=== PATIENT | male | born 1980 | race Caucasian/White ===

== ENCOUNTER 2019-01-22 20:26 | Inpatient (IN) | payer MEDICAID ==
[2019-01-22] VITALS (7 sets, daily range): BP systolic 138–175; BP diastolic 92–119
[~2019-01-22] VITALS: Ht 180.3 cm; Wt 77.1 kg
--- NOTE | ~2019-01-22 | HP ---
PATIENT: GIORGIO SHELBY III MEDICAL RECORD: [id number] ACCOUNT: [id number] LOCATION:[facility] D.[id number] : 80 ADMISSION DATE: 01/22/19 PCP: No PCP HISTORY AND PHYSICAL EXAMINATION HISTORY OF PRESENT ILLNESS: A 38-year-old white male was brought in by ambulance after the patient had a syncopal episode that occurred. The patient is a med-on-call patient. Evidently, the patient was in his usual state of health. He had had an episode of public intoxication. Ambulance was called due to patient falling and sustaining a right facial trauma. The patient became combative en route, did have aspiration that was witnessed by the EMS, and the patient had respiratory distress. He required emergent intubation to protect his airway and initially had been coherent. The patient received 10 of Versed by EMS en route. Presently, the patient is in appropriate C-collar. Laceration is noted to the right face with trauma present there as well. He is intubated. He does smell of alcohol, but otherwise is stabilized appropriately. I was unable to obtain medical history due to being a med-on-call and no other historical information obtained as well as being intubated at the present time. OBJECTIVE: VITAL SIGNS: As per ER course. HEENT: The patient does have evidence of recent trauma to the right forehead and eye. Intubation is present. NECK: Stabilized with cervical collar. LUNGS: Coarse breath sounds heard in bilateral upper lung rosas. HEART: Regular rate and rhythm with mild tachycardia. ABDOMEN: Soft and nontender. Positive bowel sounds. No hepatosplenomegaly or masses. EXTREMITIES: Multiple tattoos are present. No edema is present. He does have good pulses in all 4 extremities. The patient had CT of head, face, and C-spine. He was stabilized. The patient was started on vancomycin and Zosyn. Ventilator management to be obtained with Dr. Monge, who is the field research assistant on-call. PLAN: The patient will be transferred to the ICU. Banana bag to be initialized. DT precautions to be utilized and check laboratory appropriately. TRANSINT:[id number] Voice Confirmation ID: [id number] DOCUMENT ID: [id number] BRIONNA BECKETT MD CC: [id number] DICTATION DATE: 01/23/19 141 FLOATER OPERATOR: 01/23/191757 ADM IN [facility] [address] [facility] [place] [address]
--- NOTE | ~2019-01-22 | CN ---
PATIENT NAME:GIORGIO SHELBY III MEDICAL RECORD: [id number] : 80 LOCATION:[id number] ADMIT DATE: 01/22/19 ACCOUNT: [id number] CONSULTING PHYSICIAN: DIONNA ALEJANDRO MD REFERRING PHYSICIAN: BRIONNA TORRES MD DATE OF CONSULTATION: 01/23/2019 CONSULT REQUESTING PHYSICIAN: Dr. Torres REASON FOR CONSULTATION: Vent management, alcohol intoxication. HISTORY OF PRESENT ILLNESS: Mr. Shelby is a 38-year-old gentleman who was brought in by the ambulance to the ER. On the way from home, the patient was intoxicated and he was very agitated and restless. The patient was also having a fall and got right-sided facial injury. The patient was electively intubated to protect his airway. REVIEW OF SYSTEMS: The detail is not obtainable. PAST MEDICAL HISTORY: Alcoholism. The other details are not obtainable. PERSONAL AND SOCIAL HISTORY: The patient is drinking on a regular basis. FAMILY HISTORY: Nonobtainable. ALLERGIES: No known drug allergy. MEDICATIONS: PowerPlan is reviewed. PHYSICAL EXAMINATION: GENERAL: Now, the patient is orally intubated. The patient is very agitated. He has a right facial injury. VITAL SIGNS: The blood pressure is 150/96, pulse is 116, respirations 20, temperature 98.4, SpO2 is 97% on assist control mechanical ventilation, tidal volume of 550, FiO2 of 30%, PEEP of 5. HEENT: Conjunctivae are pink. Sclerae nonicteric. NECK: Supple. No JVD. The patient is in the cervical collar. CHEST: The chest excursion is equal on both sides. There are bibasilar crackles. No wheezing. HEART: Rhythm regular, normal sound, no murmur. ABDOMEN: Soft, bowel sounds present. No hepatosplenomegaly. RECTAL: Deferred. EXTREMITIES: No cyanosis, no clubbing, no pedal edema. CENTRAL NERVOUS SYSTEM: The patient is moving all 4 extremities. He is sedated and agitated. LABORATORY DATA: CBC: The WBC is 13.9, hemoglobin 15.1, hematocrit 43.6, and platelet count 308. Chemistry: Sodium 143, potassium 3.9, BUN is 7, creatinine 0.8. The proBNP is 16. Liver enzymes within normal range. CONSULT REPORT [id number] GIORGIO SHELBY III The alcohol level is 362. The urine positive for benzodiazepines. ABG: The pH is 7.34, pCO2 was 47.6, the pO2 was 499. This was done on 100% oxygen on assist control mechanical ventilation. CHEST RADIOGRAPH: There are increased interstitial markings. The ET tube is in good position. IMPRESSION: 1. Acute hypoxic respiratory failure. 2. Acute mental status changes. 3. Aspiration pneumonia. 4. Alcohol intoxication. 5. Leukocytosis. 6. Facial injuries, status post fall. RECOMMENDATIONS: 1. Continue mechanical ventilation, adjust the setting, change the assist control to SIMV. We will try to wean in a.m. when the patient is more awake and alert. 2. Continue the present empiric antibiotics for aspiration pneumonia. 3. Check sputum for culture and sensitivity. 4. DVT and GI bleed prophylaxis. 5. Follow up labs and chest radiograph. Discussed with RN and RT. The critical care time is 45 minutes. TRANSINT:[id number] Voice Confirmation ID: [id number] DOCUMENT ID: [id number] DIONNA ALEJANDRO MD CC: [id number] DICTATION DATE: 01/23/19 1346 LEAD AUDITOR: 01/23/19 2332 ADM IN [facility] [address] [place] [address]
[2019-01-22 21:07] LABS: BASOPHILS 0.4 % (0-2); EOSINOPHILS 1.2 % (0-7); HEMATOCRIT 42.6 % (42.0-54.0); HEMOGLOBIN 14.7 g/dL (13.5-17.5); IMMATURE GRANULOCYTES 0.9 % (0-5); LYMPHOCYTES 25.1 % (15-50); MCH 31.9 pg (26.0-34.0); MCHC 34.5 g/dL (31.0-37.0); MCV 92.4 fL (80.0-100.0); MONOCYTES 7.5 % (2-11); NEUTROPHILS 64.9 % (40-80); PLATELET COUNT 303 10x3/uL (130-400); RBC 4.61 10x6/uL (4.20-6.10); RDW 13.7 % (11.5-14.5); WBC 12.9 10x3/uL (4.8-10.8)
[2019-01-22 21:10] LABS: APPEARANCE CLEAR (CLEAR); BILIRUBIN NEGATIVE (NEGATIVE); COLOR YELLOW (YELLOW); GLUCOSE NEGATIVE (NEGATIVE); KETONE NEGATIVE (NEGATIVE); NITRITE NEGATIVE (NEGATIVE); PROTEIN NEGATIVE (NEGATIVE); SPECIFIC GRAVITY 1.005 (1.005-1.020); UROBILINOGEN NORMAL (NORMAL)
[2019-01-22 21:17] LABS: UDS - AMPHET NEGATIVE QUAL (NEGATIVE); UDS - BARB NEGATIVE QUAL (NEGATIVE); UDS - BENZO POSITIVE QUAL (NEGATIVE); UDS - COCAINE NEGATIVE QUAL (NEGATIVE); UDS - OPIATE NEGATIVE QUAL (NEGATIVE); UDS - PCP NEGATIVE QUAL (NEGATIVE); UDS - THC NEGATIVE QUAL (NEGATIVE)
[2019-01-22 21:22] LABS: ALBUMIN 3.6 g/dL (3.4-5.0); ALKALINE PHOSPHATASE 90 U/L (46-116); ALT (SGPT) 44 U/L (10-68); BILIRUBIN - TOTAL 0.19 mg/dL (0.2-1.3); CALC OSMOLALITY 280 mosm/kg (275-300); CALCIUM 8.6 mg/dL (8.5-10.1); CARBON DIOXIDE 26.6 mmol/L (21.0-32.0); CHLORIDE - SERUM 105 mmol/L (98-107); CREATININE - SERUM 0.9 mg/dL (0.6-1.3); GLUCOSE 99 mg/dL (74-106); POTASSIUM - SERUM 3.4 mmol/L (3.5-5.1); PROTEIN - SERUM 6.7 g/dL (6.4-8.2); SODIUM 141 mmol/L (136-145); UREA NITROGEN 12 mg/dL (7-18); eGFR NON AFRICAN AMERICAN > 90 mL/min (90-120)
[2019-01-23] VITALS (26 sets, daily range): BP systolic 110–156; BP diastolic 68–104; BMI 23.3
[2019-01-23 04:22] LABS: BASOPHILS 0.2 % (0-2); EOSINOPHILS 0.6 % (0-7); HEMATOCRIT 43.6 % (42.0-54.0); HEMOGLOBIN 15.1 g/dL (13.5-17.5); IMMATURE GRANULOCYTES 0.9 % (0-5); LYMPHOCYTES 19.9 % (15-50); MCHC 34.6 g/dL (31.0-37.0); MCV 92.4 fL (80.0-100.0); MEAN PLATELET VOLUME 8.9 fL (7.4-10.4); MONOCYTES 6.3 % (2-11); NEUTROPHILS 72.1 % (40-80); PLATELET COUNT 308 10x3/uL (130-400); RBC 4.72 10x6/uL (4.20-6.10); RDW 13.9 % (11.5-14.5); WBC 13.9 10x3/uL (4.8-10.8)
[2019-01-23 04:44] LABS: ALBUMIN 3.2 g/dL (3.4-5.0); ALKALINE PHOSPHATASE 82 U/L (46-116); ALT (SGPT) 46 U/L (10-68); AMYLASE - SERUM 65 U/L (25-115); BILIRUBIN - TOTAL 0.16 mg/dL (0.2-1.3); CALC OSMOLALITY 282 mosm/kg (275-300); CALCIUM 8.5 mg/dL (8.5-10.1); CARBON DIOXIDE 26.2 mmol/L (21.0-32.0); CHLORIDE - SERUM 109 mmol/L (98-107); CREATININE - SERUM 0.8 mg/dL (0.6-1.3); GLUCOSE 107 mg/dL (74-106); LIPASE 109 U/L (73-393); MAGNESIUM - SERUM 1.9 mg/dL (1.8-2.4); PHOSPHOROUS 4.1 mg/dL (2.5-4.9); POTASSIUM - SERUM 3.9 mmol/L (3.5-5.1); PRO BNP 16 pg/mL (0-125); PROTEIN - SERUM 6.5 g/dL (6.4-8.2); SODIUM 143 mmol/L (136-145); UREA NITROGEN 7 mg/dL (7-18); eGFR NON AFRICAN AMERICAN > 90 mL/min (90-120)
[2019-01-24] VITALS (10 sets, daily range): BP systolic 123–156; BP diastolic 75–112; Ht 180.3 cm; Wt 77.1 kg
[2019-01-24 04:33] LABS: BASOPHILS 0.3 % (0-2); HEMATOCRIT 39.3 % (42.0-54.0); HEMOGLOBIN 13.4 g/dL (13.5-17.5); IMMATURE GRANULOCYTES 0.3 % (0-5); LYMPHOCYTES 13.8 % (15-50); MCH 31.9 pg (26.0-34.0); MCHC 34.1 g/dL (31.0-37.0); MCV 93.6 fL (80.0-100.0); MEAN PLATELET VOLUME 9.2 fL (7.4-10.4); MONOCYTES 8.6 % (2-11); PLATELET COUNT 286 10x3/uL (130-400); RDW 14.1 % (11.5-14.5); WBC 13.2 10x3/uL (4.8-10.8)
[2019-01-24 04:57] LABS: ALBUMIN 2.9 g/dL (3.4-5.0); ALKALINE PHOSPHATASE 90 U/L (46-116); ALT (SGPT) 35 U/L (10-68); AMYLASE - SERUM 52 U/L (25-115); BILIRUBIN - TOTAL 0.45 mg/dL (0.2-1.3); CALC OSMOLALITY 275 mosm/kg (275-300); CALCIUM 8.2 mg/dL (8.5-10.1); CARBON DIOXIDE 25.9 mmol/L (21.0-32.0); CHLORIDE - SERUM 105 mmol/L (98-107); CREATININE - SERUM 0.7 mg/dL (0.6-1.3); GLUCOSE 92 mg/dL (74-106); LIPASE 84 U/L (73-393); PHOSPHOROUS 3.1 mg/dL (2.5-4.9); PRO BNP 33 pg/mL (0-125); PROTEIN - SERUM 6.1 g/dL (6.4-8.2); SODIUM 139 mmol/L (136-145); UREA NITROGEN 8 mg/dL (7-18); eGFR NON AFRICAN AMERICAN > 90 mL/min (90-120)
== END 2019-01-24 13:04 | disposition left against medical advice (07) | DRG 208 ==
LOC: EDBD 20:26 → D.ER 20:26 → D.ICU 22:56
PROVIDERS: Family Medicine; ADMIT Family Medicine; ATTEND Family Medicine
PROC: 5A1945Z Respiratory Ventilation, 24-96 Consecutive Hours (ICD-10-PCS; principal; 2019-01-22)
DX: J69.0 Pneumonitis due to inhalation of food and vomit (principal); J96.01 Acute respiratory failure with hypoxia; G92 Toxic encephalopathy; F10.129 Alcohol abuse with intoxication, unspecified; D72.829 Elevated white blood cell count, unspecified; W19.XXXA Unspecified fall, initial encounter; S00.81XA Abrasion of other part of head, initial encounter